=== PATIENT | female | born 1955 | race Caucasian/White ===

== ENCOUNTER 2022-06-25 08:57 | Day surgery (SDC) | payer MEDICARE, OTHER ==
[~2022-06-25 08:57] MED LIST: Lactated Ringers 1,000 ML IV SCH; Propofol 200 MG/20 ML SDV ONE; Sodium Chloride 0.9% 10 ML Syringe FLUSH PRN; Sodium Chloride 0.9% 2.5 ML Syringe FLUSH PRN; Sodium Chloride 0.9% 20 ML SDV IV PRN
[2022-06-25] MEDS ORDERED: Propofol 200 MG/20 ML SDV ONE (09:56)
[2022-06-25] MEDS ORDERED: fentaNYL 100 MCG/2 ML SDV ONE (09:58)
[2022-06-25 10:36] VITALS: BP 106/59; PULSE 79
== END 2022-06-25 10:50 | disposition home or self-care (01) ==
LOC: MW.SDS 08:57
PROVIDERS: ATTEND Surgery
DX: Z12.11 Encounter for screening for malignant neoplasm of colon (principal); F41.9 Anxiety disorder, unspecified; E78.00 Pure hypercholesterolemia, unspecified; M85.80 Other specified disorders of bone density and structure, unspecified site; I10 Essential (primary) hypertension; I47.1 Supraventricular tachycardia; Z80.0 Family history of malignant neoplasm of digestive organs; Z88.0 Allergy status to penicillin; Z88.1 Allergy status to other antibiotic agents; Z88.8 Allergy status to other drugs, medicaments and biological substances; Z79.899 Other long term (current) drug therapy; Z86.16 Personal history of COVID-19
CPT/HCPCS: G0105; J2704; J3010; J7120; 00812